=== PATIENT | male | born 2000 | race Caucasian/White ===

== ENCOUNTER 2018-08-22 12:42 | Emergency (ER) | payer SELFPAY ==
[2018-08-22 12:43] VITALS: BP 107/79; PULSE 99; RESP 16; TEMP 37.3; O2SAT 100; BMI 19.0
--- NOTE | 2018-08-22 13:06 | ED.VISSUMM ---
- ER Visit Summary Date of Service: 08/22/18 Chief Complaint: Sore throat History of Present Illness: The patient is a 18 M who presents for a sore throat since yesterday. Patient states he also is having cough, stuffy and runny nose, nausea, and feels hot. He has not had a measured fever. He has no medical problems. He has not tried any medications for his symptoms.. No chest pain, shortness of breath, vomiting, diarrhea or other complaints. Patient still has his tonsils. He vapes. Physical Examination: Vital signs: afebrile, hemodynamically stable, no hypoxia on room air General: well nourished, well developed, in no distress Skin: warm, dry, no rash, no pallor HEENT: normocephalic and atraumatic; PERRL, EOMI, moist mucous membranes, no tonsillar swelling, erythema or exudate, no oropharyngeal lesions, neck is supple with full active range of motion, mild anterior lymphadenopathy on the left anterior chain, no submandibular fullness, no sublingual edema, no meningismus, TMs are clear and pearly bilaterally with small amount of air-fluid level on the left Cardiovascular: regular rate and rhythm without murmurs, no peripheral edema, 2+ pulses all distal extremities Respiratory: No increased work of breathing, lungs are clear to auscultation bilaterally, no rales, rhonchi or wheezing Abdominal: Abdomen is soft, nontender with normoactive bowel sounds, no guarding or rebound, no masses MSK: Moves all extremities, no deformities, normal strength Neuro: Awake and alert, oriented ?4. No facial droop, sensation and motor function intact and symmetric Test Results: Medications Given Discontinued Medications Acetaminophen (Tylenol) 1,000 mg PO X1 ONE Stop: 08/22/18 13:06 Benzonatate (Tessalon Perle) 200 mg PO X1 ONE Stop: 08/22/18 13:06 Ondansetron HCl (Zofran Odt) 4 mg PO X1 ONE Stop: 08/22/18 13:10 Emergency Department Course and Treatment: Patient was given Tylenol, benzonatate and Zofran for symptomatic relief in the emergency department. His presentation and history is not concerning for strep pharyngitis. Centor score is 1. No strep test performed. We discussed symptomatic care. His presentation is most consistent with a viral upper respiratory infection. He was given a prescription for naproxen, Zofran and Tessalon Perles for symptoms. We discussed that it may take 1 to 2 weeks for his symptoms to resolve. Patient was given follow-up with a primary care doctor. Patient was discharged home. Treatment Plan: [] Disposition: [] Impression: Viral URI This note was generated with [employer] dictation software. It may contain incorrect words, spelling, and punctuation that were not noted in review of the chart prior to signing ED Disposition - Plan for ED Patient: Disposition: Home or Assisted Living Instructions: ED URI Viral Prescriptions: Ondansetron [Zofran Odt] 4 mg PO Q8H PRN PRN #10 tab PRN Reason: Nausea Naproxen 500 mg PO Q12H PRN PRN #20 tab PRN Reason: Pain Benzonatate [Tessalon Perle] 100 - 200 mg PO TID PRN PRN #30 cap PRN Reason: Cough Referrals: [facility] Doctor,Out of [Primary Care Provider] - Haresh Smalls MD [STAFF PHYSICIAN] - 10-14 Days if not better Additional Instructions: You may use naproxen for pain and fever. Use the ondansetron as needed for nausea. Use the Tessalon Perles as needed for cough. You may use [id number] cold medicine for sinus congestion and runny nose. If you have any worsening of your condition or any new concerning symptoms, please return immediately to the emergency department for another evaluation.
[2018-08-22] MEDS: Ondansetron ODT 4 MG Tablet PO (13:23)
[2018-08-22] MEDS: Acetaminophen 500 MG Tablet 1000 MG PO (13:24)
[2018-08-22] MEDS: Benzonatate 100 MG Capsule 200 MG PO (13:24)
== END 2018-08-22 13:31 | disposition home or self-care (01) ==
LOC: ED 13:25
PROVIDERS: Emergency Provider Emergency Medicine
DX: J06.9 Acute upper respiratory infection, unspecified (principal); R11.0 Nausea; F17.290 Nicotine dependence, other tobacco product, uncomplicated
CPT/HCPCS: 99284

== ENCOUNTER 2018-11-25 19:34 | Emergency (ER) | payer SELFPAY ==
[2018-11-25 19:35] VITALS: BP 115/70; PULSE 100; RESP 18; TEMP 36.7; O2SAT 98; BMI 18.0
[2018-11-25] MEDS: Ketorolac 60 MG/2 ML Vial IM (21:13)
--- NOTE | 2018-11-25 21:56 | ED.VIS.URI ---
History of Present Illness Chief Complaint: Sore Throat Informant: Patient Onset: Weeks - 1-1.5 Context: Gradual Onset Timing: Continuous Quality: sore Location: throat Current Severity: Moderate Maximum Severity: Moderate Worsened by: Swallowing Relieved by: - - Oxycodone from 1 of his friends Associated Symptoms: Nasal Congestion, Headache, Myalgias, Nausea, Nonproductive cough. Negative for: Vomiting, Diarrhea, Shortness of Breath, Chest Pain, Hemoptysis Narrative: Sick contact with similar symptoms. Symptoms have not been getting better after 1 to 1.5 weeks. Has not been evaluated until now. Past Medical History - Allergies and Home Meds Allergies/Adverse Reactions: Allergies bee venom protein (honey bee) Allergy (Verified 11/25/18 19:38) Anaphylaxis Primary Care Physician: Care Physician,No Primary [Primary Care Provider] - Past Medical History: None Lives: With Family Smoking Status: Former smoker Review of Systems General: Reports: Fever, Malaise, Subjective. Denies: Chills Eyes: Denies: Visual changes - bilaterally, Diplopia ENT: Reports: Sore throat. Denies: Bilateral ear pain, Rhinorrhea Cardiovascular: Denies: Chest pain Respiratory: Reports: Cough. Denies: Dyspnea, Sputum Gastrointestinal: Reports: Abdominal pain, Nausea. Denies: Vomiting Musculoskeletal: Reports: Myalgias. Denies: Neck pain, Back pain Skin: Denies: Rash, Wounds Neurological: Reports: Headache. Denies: Weakness, Parasthesia, Numbness Physical Exam Vital Signs/Narrative: Vital Signs Temp Pulse Resp BP Pulse Ox 11/25/18 19:35 98.0 F 100 18 115/70 98 Inital Vital Signs reviewed: Yes General: Well nourished, Well developed Head: Normocephalic, Atraumatic Eyes: Perrl, EOMI Ears: Normal external canal, TM's clear Nose: Normal Inspection, No Rhinorrhea Mouth/Throat: Normal Inspection, Posterior Oropharyngeal Erythema Tonsils: - - No trismus or asymmetry. Negative for: Right Tonsilar Exudates, Left Tonsilar Exudates, Right Tonsilar Swelling, Left Tonsilar Swelling Neck: Supple, Nontender, Anterior Lymphadenopathy - Very mildly tender submandibular nodes. Negative for: Posterior Lymphadenopathy Cardiovascular: Regular rate, Regular rhythm, No murmurs Respiratory: No distress, CTA bilaterally, Chest nontender Abdomen: Soft, Nontender, Nondistended, Normal bowel sounds Back: Nontender, Normal Inspection Extremities: Nontender, No edema Skin: Normal color, No rash, No Trauma Neurological: Alert, Oriented x3, Cranial nerves II-XII grossly intact, Normal Strength, Normal Sensation, Normal Gait Psychological: Normal affect, Normal Mood Diagnostic/Tx/Re-eval Microbiology 11/25/18 21:05 Mucosa - Throat Group A Streptococcus Rapid Screen - Preliminary --NEGATIVE - Medical Decision Making Patient was given a shot of Toradol which helped his discomfort. I do not think he needs Decadron since he has no tonsillar edema and his tonsils are barely visible. His strep is negative, I would only treat with antibiotics if his culture returns positive. Likely viral syndrome, given a prescription for naproxen and Tessalon. ED Disposition - Plan for ED Patient: Disposition: Home or Assisted Living Diagnosis: Viral upper respiratory infection Instructions: PHARYNGITIS, Viral Prescriptions: Naproxen [Naprosyn] 500 mg PO BID PRN #20 tab Prescription Printed Benzonatate [Tessalon Perle] 100 mg PO TID PRN PRN #15 cap PRN Reason: Cough Prescription Printed Referrals: Annie Carter [NON-STAFF] - 1 Week if not improving
[2018-11-25 22:19] VITALS: RESP 16
--- NOTE | 2018-11-25 22:19 | ED.RN ---
REVIEWED D/C INSTRUCTIONS, FOLLOW UP CARE, PRESCRIPTIONS, AND FOLLOW UP CARE WITH PT. PT VERBALIZED AN UNDERSTANDING AND DENIES FURTHER QUESTIONS FOR THIS RN. PT SKIN P/W/D, RESP EVEN AND UNLABORED, PT A&O X 3, NO DISTRESS NOTED. PT AMBULATED OUT OF ED, GAIT STEADY.
== END 2018-11-25 22:21 | disposition home or self-care (01) ==
PROVIDERS: Emergency Provider Emergency Medicine
DX: J06.9 Acute upper respiratory infection, unspecified (principal); R10.9 Unspecified abdominal pain; R11.0 Nausea; Z87.891 Personal history of nicotine dependence
CPT/HCPCS: 87880; 96372; 99282